=== PATIENT | male | born 1960 ===

== ENCOUNTER 2016-08-07 11:56 | Emergency (ER) | payer OTHER, BC ==
[2016-08-07] MEDS ORDERED: Aspirin Low Dose CHEW TAB* 81 MG PO ONE (12:10)
--- NOTE | 2016-08-07 12:10 | UC ---
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 --- - History of Current Complaint Chief Complaint: UCChestPain Stated Complaint: CHEST PAIN Time Seen by Provider: 08/07/16 12:05 Hx Obtained From: Patient Onset/Duration: Sudden Onset, Lasting Minutes - 20 minutes, Lasting Hours, Still Present Timing: Constant Initial Severity: Moderate Current Severity: Moderate Chest Pain Location: Mid Sternal Character: Tightness Aggravating: Exertion Alleviating: Rest Associated Signs & Symptoms: Positive: Negative - Allergy/Home Medications Allergies/Adverse Reactions: Allergies Allergy/AdvReac Type Severity Reaction Status Date / Time No Known Allergies Allergy Verified 08/07/16 12:34 Home Medications: Home Medications Aspirin [Aspirin Adult Low Dose 81 MG] 81 mg PO DAILY 08/07/16 [History Confirmed 08/07/16] PMH/Surg Hx/FS Hx/Imm Hx Previously Healthy: Yes - Surgical History Surgical History: None - Family History Known Family History: Positive: Cardiac Disease, Hypertension - Social History Occupation: Retired Lives: With Family Alcohol Use: None Substance Use Type: None Smoking Status (MU): Never Smoked Tobacco Review of Systems Constitutional: Negative Skin: Negative Eyes: Negative ENT: Negative Respiratory: Negative Cardiovascular: Chest Pain Gastrointestinal: Negative Genitourinary: Negative Motor: Negative Neurovascular: Negative Musculoskeletal: Negative Neurological: Negative Psychological: Negative All Other Systems Reviewed And Are Negative: Yes - Comments Additional Review of Systems Comments: patient is sweaty as well Physical Exam Triage Information Reviewed: Yes Appearance: Well-Appearing, No Pain Distress, Well-Nourished Vital Signs Reviewed: Yes Eye Exam: Normal Eyes: Positive: Conjunctiva Clear ENT Exam: Normal ENT: Positive: Normal ENT inspection, Hearing grossly normal, Pharynx normal, TMs normal. Negative: Nasal congestion, Nasal drainage, Tonsillar swelling, Tonsillar exudate, Trismus, Muffled/hoarse voice Dental Exam: Normal Neck exam: Normal Neck: Positive: Supple, Nontender, No Lymphadenopathy Respiratory Exam: Normal Respiratory: Positive: Chest non-tender, Lungs clear, Normal breath sounds, No respiratory distress, No accessory muscle use Cardiovascular Exam: Normal Cardiovascular: Positive: RRR, No Murmur, Pulses Normal, Brisk Capillary Refill Abdominal Exam: Normal Musculoskeletal Exam: Normal Musculoskeletal: Positive: Strength Intact, ROM Intact, No Edema Neurological Exam: Normal Neurological: Positive: Alert, Muscle Tone Normal Psychological Exam: Normal Skin Exam: Normal Skin: Positive: Other - cool and moist Diagnostics - EKG Cardiac Rate: NL Cardiac Rhythm: Sinus: Normal Ectopy: None ST Segment: Non-Specific - Assessment/Plan Course Of Treatment: iv, asa ntg to [facility] via ambulance for higher level of care - Differential Diagnoses - Chest Pain Differential Diagnosis/HQI/PQRI: Acute [place], ACS, Angina - Clinical Impression Provider Diagnoses: Chest pain, hypertension - Physician Notifications Discussed Patient Care With: Dr. Junior Time Discussed With Above Provider: 12:30 Instructed by Provider To: Transfer Discharge - Discharge Plan Condition: Guarded Disposition: TRANS [facility]ARE FAC Referrals: Matt Ribeiro MD [Primary Care Provider] -
[2016-08-07 12:32] VITALS: BP 177/85
[2016-08-07] MEDS ORDERED: Nitroglycerin TAB 0.4 MG* 0.4 MG TAB SL ONE (12:39)
== END 2016-08-07 12:43 | disposition short-term general hospital (02) ==
LOC: UCEAST 11:56
DX: I10 Essential (primary) hypertension (principal); R07.9 Chest pain, unspecified; Z79.82 Long term (current) use of aspirin
CPT/HCPCS: 93005; 99203; A9270-GY; G0463

== ENCOUNTER 2016-08-07 13:08 | Observation (INO) | payer OTHER, BC ==
[2016-08-07] MEDS ORDERED: Aspirin Low Dose CHEW TAB* 81 MG PO ONE (13:19)
[2016-08-07 13:29] LABS: Hematocrit 38 % (42-52); Hemoglobin 12.5 g/dl (14.0-18.0); Mean Corpuscular HGB Conc 33 g/dl (31-36); Mean Corpuscular Hemoglobin 30 pg (27-31); Mean Corpuscular Volume 89 fL (80-94); Mean Platelet Volume 9 um3 (7.4-10.4); Red Blood Count 4.22 10^6/ul (4.0-5.4); Red Cell Distribution Width 14 % (10.5-15); White Blood Count 6.8 10^3/ul (3.5-10.8)
[2016-08-07 13:42] LABS: Albumin 4.2 g/dL (3.2-5.2); BUN/Creatinine Ratio 16.2 (8-20); Calcium 9.2 mg/dL (8.6-10.3); EGFR African American 93.3 (>60); EGFR Non-African American 72.5 (>60); Potassium 4.2 mmol/L (3.5-5.0); Total Bilirubin 0.5 mg/dL (0.2-1.0); Total Protein 7.2 g/dL (6.4-8.9)
--- NOTE | 2016-08-07 13:43 | RAD ---
INDICATION: Chest pain COMPARISON: [id number],[phone] TECHNIQUE: An AP portable view obtained at 1332 hours is submitted. FINDINGS: Bones/Soft Tissues: There are no acute bony findings. Cardiomediastinal: The cardiomediastinal silhouette is mildly prominent, unchanged. Lungs: There are no infiltrates. Pleura: There are no pleural effusions. Other: None IMPRESSION: NO ACTIVE DISEASE. NO INTERVAL CHANGE.
[2016-08-07] MEDS ORDERED: Ondansetron INJ* 2 MG/ML VIAL IV PRN (14:39)
[2016-08-07] MEDS ORDERED: Acetaminophen TAB* 325 MG PO PRN (14:39)
--- NOTE | 2016-08-07 15:00 | ED ---
Melly, DoctorRatna, scribed for Demetria Betancur MD on 08/07/16 at 1316 . HPI Chest Pain - HPI Summary HPI Summary: 56 year old male arrived to [facility] from [facility] c/o chest pain starting at 11:15 today. The pain began while pt was bird watching with his , but he was not exerting himself at the time. He reports the pain was sharp in the middle of his chest, and did not radiate anywhere else. His pain lasted 20 minutes and resolved spontaneously. He denies any SOB or chest pressure; reports diaphoresis. He has no PMHx of HLD, blood clots, or DM; no FHx of [place] before age 55 (both parents had "heart issue" after age 55). - History of Current Complaint Chief Complaint: EDChestPainROMI Hx Obtained From: Patient Onset/Duration: Started Hours Ago - onset at 11:00 am today, Resolved Timing: Lasting Minutes - episode lasted 20 minutes Initial Severity: Moderate Current Severity: Moderate Chest Pain Location: Mid Sternal Chest Pain Radiates: No Character: Sharp/Stabbing Aggravating Factor(s): Nothing Alleviating Factor(s): Nothing - spontaneous resolution after 20 minutes Associated Signs and Symptoms: Positive: Chest Pain, Diaphoresis. Negative: Shortness of Breath, Fever, Nausea, Calf Pain/Swelling, Vomiting - Allergy/Home Medications Allergies/Adverse Reactions: Allergies Allergy/AdvReac Type Severity Reaction Status Date / Time No Known Allergies Allergy Verified 08/07/16 12:34 Home Medications: Home Medications Cetirizine* [ZyrTEC 10 MG TAB*] 10 mg PO DAILY 08/07/16 [History Confirmed 08/07] Cyanocobalamin [B12] 1,000 mcg PO DAILY 08/07/16 [History Confirmed 08/07/16] Glucosamine-Chondroitin [Glucosamine & Chondroitin 500-400 mg] 1 cap PO DAILY [History Confirmed 08/07/16] [place]-3 Fatty Acids [Fish Oil 1200 mg] 1 cap PO DAILY 08/07/16 [History Confirmed 08/07/16] PMH/Surg Hx/FS Hx/Imm Hx Cardiovascular History: Reports: Hx Hypertension - Social History Alcohol Use: None Substance Use Type: Reports: None Smoking Status (MU): Never Smoked Tobacco Review of Systems ENT: Negative Negative: Epistaxis, Dental Pain, Sore Throat, Ear Ache, Nasal Discharge Positive: Chest Pain. Negative: Palpitations Respiratory: Negative Negative: Shortness Of Breath, Cough Gastrointestinal: Negative Negative: Abdominal Pain, Vomiting, Diarrhea Genitourinary: Negative Negative: see HPI, burning, dysuria, discharge, hematuria, incontinence, pain, urgency Musculoskeletal: Negative Negative: Arthralgia, Myalgia, Decreased ROM, Edema Skin: Negative Negative: Rash, Bruising Neurological: Negative Negative: Headache, Weakness, Paresthesia, Numbness Psychological: Normal Negative: Anxious, Depressed All Other Systems Reviewed And Are Negative: Yes Physical Exam Vital Signs On Initial Exam: Initial Vitals BP 135/81 08/07/16 13:13 Diagnostics - Vital Signs Vital Signs Temp Pulse Resp BP Pulse Ox 08/07/16 14:00 55 17 153/79 100 08/07/16 13:30 54 14 144/90 96 08/07/16 13:19 98.6 F 98 16 135/81 98 08/07/16 13:18 0 08/07/16 13:13 135/81 - Laboratory Lab Results: Lab Results 08/07/16 08/07/16 08/07/16 Range/Units 12:15 12:15 14:15 WBC 6.8 (3.5-10.8) 10^3/ul RBC 4.22 (4.0-5.4) 10^6/ul Hgb 12.5 L (14.0-18.0) g/dl Hct 38 L (42-52) % MCV 89 (80-94) fL MCH 30 (27-31) pg MCHC 33 (31-36) g/dl RDW 14 (10.5-15) % Plt Count 169 (150-450) 10^3/ul MPV 9 (7.4-10.4) um3 Neut % (Auto) 62.3 (38-83) % Lymph % (Auto) 25.9 (25-47) % [place] % (Auto) 7.8 (1-9) % Eos % (Auto) 3.3 (0-6) % Baso % (Auto) 0.7 (0-2) % Absolute Neuts (auto) 4.3 (1.5-7.7) 10^3/ul Absolute Lymphs (auto) 1.8 (1.0-4.8) 10^3/ul Absolute Monos (auto) 0.5 (0-0.8) 10^3/ul Absolute Eos (auto) 0.2 (0-0.6) 10^3/ul Absolute Basos (auto) 0 (0-0.2) 10^3/ul Absolute Nucleated RBC 0 10^3/ul Nucleated RBC % 0 Sodium 135 (133-145) mmol/L Potassium 4.2 (3.5-5.0) mmol/L Chloride 99 L (101-111) mmol/L Carbon Dioxide 30 (22-32) mmol/L Anion Gap 6 (2-11) mmol/L BUN 17 (6-24) mg/dL Creatinine 1.05 (0.67-1.17) mg/dL Est GFR ( Amer) 93.3 (>60) Est GFR (Non-Af Amer) 72.5 (>60) BUN/Creatinine Ratio 16.2 (8-20) Glucose 100 (70-100) mg/dL Lactic Acid 0.6 (0.5-2.0) mmol/L Calcium 9.2 (8.6-10.3) mg/dL Total Bilirubin 0.50 (0.2-1.0) mg/dL AST 18 (13-39) U/L ALT 17 (7-52) U/L Alkaline Phosphatase 54 (34-104) U/L Troponin I 0.00 (<0.04) ng/mL Total Protein 7.2 (6.4-8.9) g/dL Albumin 4.2 (3.2-5.2) g/dL Globulin 3.0 (2-4) g/dL Albumin/Globulin Ratio 1.4 (1-3) Result Diagrams: 08/07/16 12:15 08/07/16 12:15 Lab Statement: Any lab studies that have been ordered have been reviewed, and results considered in the medical decision making process. - Radiology CXR Radiology Interpretation Completed By: Radiologist - IMPRESSION: NO ACTIVE DISEASE. NO INTERVAL CHANGE. - EKG 11:04 EKG Rhythm: Sinus Rhythm - normal ST Segment: Normal EKG Interpretation: NSR, no ST Elevation, LVH EKG Comparison: No Significant Change - from EKG taken on 11/05/2010 14:30 Cardiac Rate: Bradycardia - 53 bpm EKG Rhythm: Sinus Rhythm - normal ST Segment: Normal Ectopy: None EKG Comparison: No Significant Change - from EKG taken at 11:04 on 08/07/2016 Chest Pain Course/Dx - Course Course Of Treatment: no risks, pain while walking at 11am talked with Dr. Mederos about obv - Diagnoses Provider Diagnoses: Chest pain Discharge - Discharge Plan Condition: Stable Disposition: HOME The documentation as recorded by the Doctor germain Tahera accurately reflects the service I personally performed and the decisions made by me, Demetria Betancur MD.
[2016-08-07] MEDS: Heparin VIAL(*) 5000 UNITS/ML VIAL (FIVE THOUSAND) SUBCUT SCH (21:29)
--- NOTE | 2016-08-08 00:18 | HP ---
HISTORY AND PHYSICAL: DATE OF ADMISSION: 08/07/16 PRIMARY CARE PROVIDER: Dr. Ribeiro. ATTENDING PHYSICIAN WHILE IN THE HOSPITAL: Izabella Villavicencio MD *(report dictated by Errol Naidu NP). CHIEF COMPLAINT: Chest pain. HISTORY OF PRESENT ILLNESS: Mr. Haider is a 56-year-old male patient with a history of gout, eczema, rosacea, and hyperlipidemia who comes into the ER today stating that he was outside bird watching with his at . He was walking and unfortunately while he was walking, developed a sudden onset of a sharp stabbing chest discomfort in the middle of his chest. No associated shortness of breath and nausea. There was a question if he had some diaphoresis. The patient states that the symptoms probably lasted about 20 minutes total by the time he got to urgent Care. He was given some medications. He believes it was nitro. He is unsure and the pain had gone away but because it was nitro responsive, he was sent from Urgent Care to the hospital for evaluation. He says he has not been sick recently. He does state that in May, he had a 12-hour car ride, he did drive back from [place], he split up but on the last day he drove 12 hours straight. He denied having any shortness of breath. He says he bikes every other day. Actually, in fact yesterday, he biked for an hour and 45 minutes, he had no chest discomfort. He has had chest discomfort like just once in his life before and that was in March of this year which again he does not recall the exact details of that event. He came into the ER was evaluated. There was concern that this might represent acute coronary syndrome. Hospitalist service was asked to evaluate for admission. PAST MEDICAL HISTORY: Significant for: 1. Gout. 2. Eczema. 3. Hyperlipidemia. 4. Rosacea. SURGICAL HISTORY: Denied. HOME MEDICATIONS: According to the list that he provided us include: 1. Aspirin 81 mg daily. 2. [place]-3 fatty acid 1 capsule daily. 3. Glucosamine 1 capsule daily. 4. B12 1000 mcg daily. 5. Zyrtec 10 mg daily. ALLERGIES TO MEDICATIONS: Include no known drug allergies. FAMILY HISTORY: Both his parents did have MIs, but that happened when they were there in their 70s. SOCIAL HISTORY: The patient does not smoke. He rarely drinks alcohol. Surrogate decision maker is his . REVIEW OF SYSTEMS: There is no documented fever. He denied having any significant weight change. There was no double vision. Denies having any ear discharge. There was no rhinorrhea. No sore throat. No thyroid enlargement. He does admit to having chest pain per my HPI. He denied having any abdominal pain. No shortness of breath. No orthopnea. No nocturnal dyspnea. There was no nausea. No vomiting. No dysuria. No frequency. No seizure. No loss of consciousness. No pruritus. No skin ulcerations. Review of 14 systems completed, all others negative. PHYSICAL EXAMINATION GENERAL: At this time, Mr. Haider is a 56-year-old male patient, appears well- nourished, well-developed. He is sitting in the ER stretcher. He does not appear to be in any acute distress. VITAL SIGNS: Blood pressure 150/79, pulse 55, respirations 18, O2 sat 100%, temperature 98.6. HEENT: Head is atraumatic, normocephalic. Eyes: EOMs are intact. Sclerae anicteric and not pale. Throat: Oral mucosa appears to be moist. No oropharyngeal erythema. NECK: Supple. LUNGS: Clear to auscultation bilaterally. No wheezes, rales, or rhonchi. HEART: Sounds S1, S2. Regular rate and rhythm. No murmurs, rubs or gallops. ABDOMEN: Soft, flat, nontender. Bowel sounds present. EXTREMITIES: Pulses are 2+ throughout. No peripheral edema noted. NEUROLOGIC: The patient is awake, alert, and oriented x3. Speech clear. Tongue midline. Resident Surgeon are equal. No gross focal deficits. SKIN: Intact. LABORATORY DATA/IMAGING STUDIES: Labs today revealed a WBC of 6.8, RBC of 4.22 , hemoglobin 12.5, hematocrit of 38, platelet count of 169. The sodium was 135 , potassium 4.2, chloride of 99, CO2 of 30, BUN 17, creatinine 1.05, glucose 100. Calcium 9.2, total bilirubin 0.5, AST 18, ALT 17, alk phos 54, troponin 0. The patient did have a chest x-ray obtained today, which showed no acute disease. He had an EKG done at Urgent Care and then a repeat done here. The EKG showed a sinus bradycardia. No ST elevation or T-wave inversions. It was reviewed to his previous EKGs, appears to be similar. He had an EKG from 6 years ago and again appears to be similar. No acute changes were noted. Old records were reviewed. ASSESSMENT AND PLAN: Mr. Haider is a 56-year-old male patient coming into the ER today with complaints of chest discomfort. On evaluation today, there was concern this might represent acute cardiac syndrome. Hospitalist service was asked to evaluate for admission. He will be admitted under observation status for: 1. Chest pain. Again, at this point, he did bike an hour and a half yesterday , he had no chest discomfort; however, he was walking today and then had some exertional chest pain, which is concerning. He did describe it as a sharp pain and I do think that we should check a D-dimer. He had recent long travel. We will cycle his troponins and place him on telemetry and get a stress test on the patient and do serial EKGs. Although, I suspect this is either musculoskeletal or possible gastroesophageal reflux disease and again I will do the D-dimer to rule out pulmonary embolism. 2. History of gout. Continue with current medical regimen. 3. History of hyperlipidemia. We will check a lipid panel in the morning. 4. History of rosacea and eczema. Continue current medical regimen. 5. DVT prophylaxis. He will be placed on heparin subcu. 6. Code status: Full code. 7. Fluid, electrolytes, and nutrition: He can have a heart healthy diet. TIME SPENT: Time spent on the admission was 60 minutes; greater than half the time was spent [id number] with the patient obtaining my history and physical, the other half time is spent going over the plan of care with the patient and implementing plan of care. I did discuss the plan of care with my attending, Dr. Villavicencio. She is in agreement. ERROL NAIDU NP CC: Dr. Ribeiro * [id number]/[facility] #: [id number] MTDD
[2016-08-08 05:47] LABS: Hematocrit 37 % (42-52); Hemoglobin 12.4 g/dl (14.0-18.0); Mean Corpuscular HGB Conc 33 g/dl (31-36); Mean Corpuscular Hemoglobin 30 pg (27-31); Mean Corpuscular Volume 89 fL (80-94); Mean Platelet Volume 9 um3 (7.4-10.4); Red Blood Count 4.19 10^6/ul (4.0-5.4); Red Cell Distribution Width 14 % (10.5-15)
[2016-08-08 06:01] LABS: BUN/Creatinine Ratio 15.9 (8-20); Calcium 8.9 mg/dL (8.6-10.3); EGFR African American 114.4 (>60); EGFR Non-African American 88.9 (>60); HDL Cholesterol 40.5 mg/dL; Potassium 3.9 mmol/L (3.5-5.0)
[2016-08-08] MEDS: Heparin VIAL(*) 5000 UNITS/ML VIAL (FIVE THOUSAND) SUBCUT SCH ×2 (06:31→12:31)
[2016-08-08] MEDS ORDERED: Aspirin Low Dose CHEW TAB* 81 MG PO SCH (09:00)
[2016-08-08] MEDS ORDERED: Cetirizine* 10 MG TAB PO SCH (09:00)
[2016-08-08 12:25] VITALS: BP 137/85
--- NOTE | 2016-08-08 12:50 | RAD ---
INDICATION: Chest pain COMPARISON: None TECHNIQUE: A single day SPECT protocol was utilized. Rest images were acquired following the intravenous injection of 10.7 millicuries of technetium 99m tetrofosmin. Exercise stress images were acquired following the intravenous administration of 25.6 millicuries of technetium 99m tetrofosmin. The patient was exercised to a peak heart rate of 155 which is 96% of age predicted maximum. FINDINGS: There are no defects of the stress-induced or fixed nature. The cardiac chamber size is normal. There are no wall motion abnormalities. The ejection fraction is calculated at 55 percent during stress. IMPRESSION: THE CARDIAC CHAMBERS SIZE IS MILDLY PROMINENT AND THERE IS A LOW NORMAL EJECTION FRACTION. NO STRESS-INDUCED OR FIXED DEFECTS ARE SEEN ASSESSMENT: LOW-RISK Based on imaging criteria from ACC/AHA 2002 Guideline Update for the Management of Patients With Chronic Stable Angina Table 23. Noninvasive Risk Stratification.
--- NOTE | 2016-08-09 10:55 | DS ---
DISCHARGE SUMMARY: DATE OF ADMISSION: 08/07/16 DATE OF DISCHARGE: 08/08/16 PRIMARY CARE PROVIDER: Matt Ribeiro MD DISCHARGING PROVIDER: SHARONDA Galindo SUPERVISING PHYSICIAN: Sabrina Jolly MD* (DICTATED BY SHARONDA GALINDO) PRIMARY DISCHARGE DIAGNOSIS: Chest pain. SECONDARY DISCHARGE DIAGNOSES: 1. Gout. 2. Hyperlipidemia. 3. Rosacea. 4. Eczema. DISCHARGE MEDICATIONS: 1. Aspirin 81 mg p.o. daily. 2. Cetirizine 10 mg p.o. daily. 3. Vitamin B12 1000 mcg p.o. daily. 4. Glucosamine and chondroitin 1 capsule p.o. daily. 5. Fish oil 1 capsule p.o. daily. HOSPITAL IMAGIN. Chest x-ray shows no acute process. 2. EKG shows sinus rhythm without ischemic changes. 3. Nuclear stress test demonstrates a low risk study without fixed reversible defects. HOSPITAL COURSE: This is a 56-year-old gentleman with a history of hyperlipidemia, gout, eczema, and rosacea who presented to the emergency department with complaint of chest pain. The patient was walking with his and he had a sudden onset of quite severe midsternal chest pain that lasted approximately 20 minutes. Eventually resolved with nitroglycerin. The patient was originally seen at Urgent Care and referred to the emergency department. Additional EKG was benign showing no ischemic changes then on a sinus rhythm. His initial troponin was negative, reported at 0.00. Chest x-ray was unremarkable and remainder of labs were within normal limits including D-dimer less than 200. The patient was subsequently admitted to an observation stay for continuous telemetry monitoring, serial troponins, and a stress test. Serial troponins remained negative at 0.00 overnight. Repeat labs following morning were within normal limits. Fasting lipid panel did demonstrate hyperlipidemia with a total cholesterol of 247 and an LDL of 184 with an HDL of 40 and triglycerides of 112. Telemetry remained normal overnight and the patient remained chest pain free. The patient underwent stress testing, which demonstrated no ischemia or infarct. The patient states that he has had 1 similar episode to this several months ago and generally does not have other complaints of chest pain or reflux. It is somewhat possible that what may have contributed to his symptoms. DISPOSITION: The patient is being discharged to home. No changes to home medications. Recommend reviewing this hospitalization with his primary care provider in the next several days. His fasting lipid panel demonstrates significant hyperlipidemia. Apart from age, he does not have other risk factors for heart disease, but may benefit from a low-dose statin. This should be discussed further with his primary care provider. SHARONDA GALINDO CC: Matt Ribeiro MD* [id number]/[facility] #: [id number] MTDEvie
== END 2016-08-08 14:10 | disposition home or self-care (01) ==
LOC: ED 13:08 → MEDTELE 14:08
PROVIDERS: ADMIT Internal Medicine; ATTEND Internal Medicine
DX: R07.9 Chest pain, unspecified (principal); M10.9 Gout, unspecified; E78.5 Hyperlipidemia, unspecified; L71.9 Rosacea, unspecified; L30.9 Dermatitis, unspecified; Z79.899 Other long term (current) drug therapy; Z79.82 Long term (current) use of aspirin; R00.1 Bradycardia, unspecified
CPT/HCPCS: 36415; 71010; 78452; 80048; 80053; 80061; 83605; 84484; 85025; 85379; 93005; 93017; 99284; A9270-GY; A9502; G0378